=== PATIENT | female | born 1975 | race Caucasian/White ===

== ENCOUNTER 2020-11-28 22:42 | Emergency (ER) | payer BC ==
[~2020-11-28] VITALS: Ht 162.6 cm; Wt 68.2 kg
--- NOTE | 2020-11-28 23:12 | RAD ---
EXAMINATION: Chest radiograph. VIEWS: Single view COMPARISON: None INDICATION:45 years, Unknown, cough and shortness of breath. FINDINGS: Normal cardiomediastinal silhouette. No focal consolidation. No pleural effusion or pneumothorax. No acute osseous process. IMPRESSION: No acute cardiopulmonary process. Electronically signed by: Myriam Humphreys MD (11/28/2020 11:10 PM) [facility]
--- NOTE | 2020-11-28 23:17 | PHYS DOC ---
General Adult EDM: Chief Complaint: ANXIETY/PANIC ATTACK HPI: HPI: 45-year-old female presents with emotional upset and a cough. The patient called EMS because she was feeling very stressed and anxious. She had a romantic partner around it was making her anxiety worse and would not leave her alone. The patient has been drinking alcohol tonight so she did not want to drive. EMS seem like a good solution. The patient does have a cough and has been feeling lightly short of breath for the last few days. She would like to make sure she does not have pneumonia. She denies fever or chills. Review of Systems: Review of Systems: Constitutional: Denies fever or chills Eyes: Denies change in visual acuity HENT: Denies nasal congestion or sore throat Respiratory: Denies cough or shortness of breath Cardiovascular: Denies chest pain or edema GI: Denies abdominal pain, nausea, vomiting, bloody stools or diarrhea : Denies dysuria Musculoskeletal: Denies back pain or joint pain Integument: Denies rash Neurologic: Denies headache, focal weakness or sensory changes Endocrine: Denies polyuria or polydipsia Lymphatic: Denies swollen glands Psychiatric: Denies depression or anxiety Allergies: Allergies: Allergies Coded Allergies Type Severity Reaction Last Updated Verified bupropion Allergy Unknown 11/28/20 Yes Physical Exam: PE: Constitutional: Well developed, well nourished, no acute distress, non-toxic appearance. [] HENT: Normocephalic, atraumatic, bilateral external ears normal, oropharynx moist, no oral exudates, nose normal. [] Eyes: PERRLA, EOMI, conjunctiva normal, no discharge. [] Neck: Normal range of motion, no tenderness, supple, no stridor. [] Cardiovascular:Heart rate regular rhythm, no murmur [] Lungs & Thorax: Bilateral breath sounds clear to auscultation [] Abdomen: Bowel sounds normal, soft, no tenderness, no masses, no pulsatile masses. [] Skin: Warm, dry, no erythema, no rash. [] Back: No tenderness, no CVA tenderness. [] Extremities: No tenderness, no cyanosis, no clubbing, ROM intact, no edema. [] Neurologic: Alert and oriented X 3, normal motor function, normal sensory function, no focal deficits noted. [] Psychologic: Affect normal, judgement normal, mood normal. [] EKG: EKG: [] Radiology/Procedures: Radiology/Procedures: [] Impressions: EXAMINATION: Chest radiograph. VIEWS: Single view COMPARISON: None INDICATION:45 years, Unknown, cough and shortness of breath. FINDINGS: Normal cardiomediastinal silhouette. No focal consolidation. No pleural effusion or pneumothorax. No acute osseous process. IMPRESSION: No acute cardiopulmonary process. Electronically signed by: Paulette Humphreys MD (11/28/2020 11:10 PM) [facility] DICTATED AND SIGNED BY: PAULETTE HUMPHREYS MD DATE: 11/28/202308 CC: JJ BAILON DO; PCP,NO ~MTH0 0 Heart Score: C/O Chest Pain: N/A Risk Factors: Risk Factors: DM, Current or recent (<one month) smoker, HTN, HLP, family history of CAD, obesity. Risk Scores: Score 0 - 3: 2.5% MACE over next 6 weeks - Discharge Home Score 4 - 6: 20.3% MACE over next 6 weeks - Admit for Clinical Observation Score 7 - 10: 72.7% MACE over next 6 weeks - Early Invasive Strategies Course & Med Decision Making: Course & Med Decision Making Pertinent Labs and Imaging studies reviewed. (See chart for details) Patient's chest x-ray is negative for acute findings. I believe she is very emotional more than anything. She just wants to "go home to a safe place". She believes that her daughter will be able to come and get her. She denies assault or physical abuse. She is stable for discharge at this time. [] Donon Disclaimer: Abbie Disclaimer: This electronic medical record was generated, in whole or in part, using a voice recognition dictation system. Departure Departure: Impression: Primary Impression: Anxiety Additional Impression: Cough Disposition: 01 HOME / SELF CARE / HOMELESS Condition: STABLE Referrals: PCP,NO (PCP) Patient Instructions: Anxiety and Panic Attacks, [id number] JJ BAILON DO Nov 28, 2020 23:17
[2020-11-28 23:55] VITALS: BP 120/84
== END 2020-11-29 00:01 | disposition home or self-care (01) ==
LOC: ER 22:42 → EDSEX 22:42 → ER 11-29 00:01
DX: F41.9 Anxiety disorder, unspecified (principal); Z88.8 Allergy status to other drugs, medicaments and biological substances
CPT/HCPCS: 71045; 99283

== ENCOUNTER 2020-12-02 18:08 | Emergency (ER) | payer BC ==
[~2020-12-02] VITALS: Ht 160 cm; Wt 68.3 kg
[2020-12-02 18:45] VITALS: BP 128/73
[2020-12-02] MEDS ORDERED: CYCLOBENZAPRINE 10 MG TABLET. PO ONE (19:15)
[2020-12-02] MEDS ORDERED: IPRATRPIUM/ALBUTEROL 0.5/2.5MG 3 ML NEBU. NEB ONE (19:15)
[2020-12-02] MEDS ORDERED: methylPREDNISolone SOD SUCC PF 125 MG/2 ML VIAL. IV ONE (19:15)
[2020-12-02] MEDS ORDERED: IBUPROFEN 600 MG TABLET. PO ONE (19:15)
[2020-12-02] MEDS ORDERED: CYCLOBENZAPRINE 10 MG TABLET. ONE (19:26)
[2020-12-02] MEDS ORDERED: methylPREDNISolone SOD SUCC PF 125 MG/2 ML VIAL. ONE (19:26)
--- NOTE | 2020-12-02 19:31 | PHYS DOC ---
Past History Additional Past Medical Histor: sleep apnea Past Medical History History of likely asthma, active smoker, Past Surgical History: Tubal ligation, Other Additional Past Surgical Histo: lumpectomy- L breast Smoking: Cigarettes, Less than 1pk/day, Greater than 1 pack/day Alcohol Use: Occasionally General Adult EDM: Chief Complaint: Cough, wheezing, HPI: HPI: 45-year-old female smoker with history of asthma/COPD possibly presented to the emergency department complaining of about 2 weeks of cough, wheezing, shortness of breath, she says that she has been to the ER before for this and to her primary care doctor, was given "some steroids" but is still complaining of some stabbing pain on both upper chest almazan and flanks with coughing, cough is nonproductive, associated with wheezing, no chest pain, symptoms not exertional, no leg swelling. No known history of cardiac disease or history of thromboembolism. She denies fevers or chills, no hemoptysis, no night sweats or weight loss. No loss of taste or smell, she is not vaccinated to COVID-19, no recent travel, Review of Systems: Review of Systems: General: no fevers , no chills, no general weakness Eyes: no blurred vision, no diplopia Skin: no rashes Neck: no swelling, no neck stiffness, no neck pain Heme: no bleeding, no lymph node enlargement Ear/Nose/Throat: No sore throat, no runny nose, no hearing loss, no difficulty swallowing Cardiovascular: no Chest pain, no palpitations, positive for pleuritic pain Respiratory: Positive for shortness of breath, cough, no hemoptysis, positive for wheezing Gastrointestinal: No abdominal pain, no nausea, no vomiting, no diarrhea, no blood in stool Genitourinary: no dysuria, no hematuria Musculoskeletal: no back pain, no leg pain, no arm pain, no arthralgia Neurologic: no headaches, no dizziness, no focal numbness/tingling, no focal weakness Psych: no depression, no anxiety, no SI/HI *All review of systems are negative other than what is noted above Current Medications: Current Meds: Current Medications Medications (Trade) Dose Ordered Sig/Warner Start Time Stop Time Status Last Admin Dose Admin Albuterol/ Ipratropium (Duoneb) 3 ml 1X ONCE 12/02/20 19:15 12/02/20 19:27 DC Cyclobenzaprine HCl (Flexeril) 10 mg STK-MED ONCE 12/02/20 19:26 12/02/20 19:27 DC Ibuprofen (Motrin) 600 mg 1X ONCE 12/02/20 19:15 12/02/20 19:27 DC Methylprednisolone Sodium Succinate (SOLU-Medrol 125MG VIAL) 125 mg STK-MED ONCE 12/02/20 19:26 12/02/20 19:27 DC Allergies: Allergies: Allergies Coded Allergies Type Severity Reaction Last Updated Verified bupropion Allergy Intermediate 11/28/20 Yes Physical Exam: PE: Gen-well appearing, no acute distress Head: Normocephalic/Atraumatic ENT: atraumatic, PERRLA, EOMI, oropharynx clear Neck: supple, full ROM/strength, no JVD, no nuchal rigidity Lungs: no distress, speaks in full sentences, there is expiratory wheezing bilaterally CV: There is precordial tenderness bilaterally, reg rate, rhythm, no murmus/rubs/gallops, peripheral pulses equal in all extremities Abdomen: soft/nontender, no guarding/rebound tenderness, no rigidity, non distended, normoactive bowel sounds Musculoskeletal: full ROM/strength in all extremities, atraumatic, no swelling Back: full range of motion/strength Skin: intact, no rashes Lymph: no gross CAIN Neuro: alert and oriented x 4, CN 2-12 grossly intact, Motor strength is 5/5 in all extremities, no focal sensory deficits, no focal ataxia, ambulatory with steady gait Psych: normal mood/affect Current Patient Data: Vital Signs: Vital Signs Date Time Temp Pulse Resp B/P (MAP) Pulse Ox O2 Delivery O2 Flow Rate FiO2 12/02/20 18:45 98.1 104 24 128/73 91 Room Air EKG: EKG: [] Twelve-lead EKG was performed at 7:31 PM: Normal sinus rhythm, rate is ninety-nine, nonischemic appearing EKG normal axis and intervals of the computer does come out about "prolonged QT", using the QTC four a heart rate of ninety- nine it is slightly prolonged at 4 to 78 ms Radiology/Procedures: Radiology/Procedures: [] Heart Score: C/O Chest Pain: Yes HEART Score for Chest Pain: HEART Score for Chest Pain Response (Comments) Value History Slighlty/Non-Suspicious 0 ECG Normal 0 Age >45 - < 65 1 Risk Factors 1 or 2 Risk Factors 1 Troponin < Normal Limit 0 Total 2 Risk Factors: Risk Factors: DM, Current or recent (<one month) smoker, HTN, HLP, family history of CAD, obesity. Risk Scores: Score 0 - 3: 2.5% MACE over next 6 weeks - Discharge Home Score 4 - 6: 20.3% MACE over next 6 weeks - Admit for Clinical Observation Score 7 - 10: 72.7% MACE over next 6 weeks - Early Invasive Strategies Course & Med Decision Making: Course & Med Decision Making Pertinent Labs and Imaging studies reviewed. (See chart for details) [] 45-year-old female without any known history of cardiac disease presents to the emergency department complaint of cough, wheezing, and also atypical chest pain that I believe is likely from intercostal muscle strain with coughing, pertinent differential diagnosis in this patient includes but is not limited to, pneumonia, bronchitis, unlikely ACS, her heart score is a 2 which is low risk for major adverse cardiac events, unlikely PE, PERC negative and low risk per Wells criteria, likely dissection, pneumothorax, unlikely any serious intracranial or intra-abdominal infection, plan at this time is to check chest x-ray, labs including troponin, D-dimer level to rule out a PE and is otherwise low risk patient, the patient is wheezing, unfortunately denies ability to a rapid Covid test but will give her some breathing treatments and a dose of steroids, then reevaluate exam in the midst of work-up and determine the best course of action is a data becomes available Updated 8:38 PM: Her work-up here is negative, she clinically improved, lungs are clear, x-ray negative, dimer negative, the patient became irate and was verbally abusive to staff members, refused to speak with me, walking around the ER and cursing at other patients, I believe she is medically stable for discharge, mentally competent, clinically sober not a threat to harming herself or others although irate and I believe she can follow-up as an outpatient Patient was seen in the ED for cough, wheezing and atypical chest pain that improved in the emergency department, there is no apparent evidence of any emergency medical pathology at this time, patient was advised follow-up with their primary care provider /physician in the next 24-48 hours and to return to the ED before then if any new or worsening / concerning symptoms had developed. All questions and concerns were addressed at time of disposition Abbie Disclaimer: Abbie Disclaimer: This electronic medical record was generated, in whole or in part, using a voice recognition dictation system. Departure Departure: Impression: Primary Impression: Wheezing Disposition: HOME / SELF CARE / HOMELESS Condition: IMPROVED Referrals: NEENA GRAYSON (PCP) 2 days Patient Instructions: Chest Pain (Nonspecific), Cough, Adult Additional Instructions: The good news that your tests here were okay, nothing dangerous, I recommend that you take the steroid pack, the breathing treatments and muscle relaxants, will need to follow-up with your primary care provider in the next 48 hours, return to the nearest emergency room before then if any new or worsening/concerning symptoms develop Scripts Cyclobenzaprine Hcl (CYCLOBENZAPRINE HCL) 10 Mg Tablet 1 TAB PO TID PRN for PAIN, #15 TAB Prov: WHITLEY BUCHANAN MD 12/02/20 Naproxen Sodium (ANAPROX DS) 550 Mg Tablet 1 TAB PO BID PRN for PAIN for 30 Days, #20 TAB 0 Refills Prov: WHITLEY BUCHANAN MD 12/02/20 Albuterol Sulfate (VENTOLIN HFA INHALER) 18 Gm Hfa.aer.ad 1 PUFF IH PRN Q4HRS PRN for FOR ASTHMA for 5 Days, EACH 0 Refills Prov: WHITLEY BUCHANAN MD 12/02/20 WHITLEY BUCHANAN MD Dec 02, 2020 19:31
[2020-12-02 19:53] LABS: BASO % 0 % (0-3); EOS % 0 % (0-3); HEMATOCRIT 35.3 % (36.0-47.0); LYMPH # 1.8 x10^3/uL (1.0-4.8); LYMPH % 17 % (24-48); MEAN CORPUSCULAR HEMOGLOBIN 31 pg (25-35); MEAN CORPUSCULAR HGB CONC 34 g/dL (31-37); MEAN CORPUSCULAR VOLUME 90 fL (79-100); MONO # 0.7 x10^3/uL (0.0-1.1); MONO % 7 % (0-9); NEUT # 8.1 x10^3uL (1.8-7.7); NEUT % 76 % (31-73); PLATELET COUNT 242 x10^3/uL (140-400); RED BLOOD COUNT 3.93 x10^6/uL (3.50-5.40); RED CELL DISTRIBUTION WIDTH 18.7 % (11.5-14.5); WHITE BLOOD COUNT 10.6 x10^3/uL (4.0-11.0)
--- NOTE | 2020-12-02 20:09 | RAD ---
XR CHEST 1V History: Reason: cough ,wheezing / Spl. Instructions: / History: Comparison: November 28, 2020 Findings: No consolidation or pleural effusion. Normal heart size. No pneumothorax. Nipple shadow projecting ov er the left lung base. Impression: 1. No acute cardiopulmonary process. Electronically signed by: Ervin García DO (12/02/2020 8:07 PM) [facility] [place]
[2020-12-02 20:20] LABS: CALCIUM 7.9 mg/dL (8.5-10.1); CREATININE 0.9 mg/dL (0.6-1.0); GFR 67.4; POTASSIUM 3.8 mmol/L (3.5-5.1)
[2020-12-02 20:31] LABS: ALBUMIN 3.3 g/dL (3.4-5.0); ALBUMIN/GLOBULIN RATIO 1.1 (1.0-1.7); TOTAL BILIRUBIN 0.3 mg/dL (0.2-1.0); TOTAL PROTEIN 6.3 g/dL (6.4-8.2)
[2020-12-02] MEDS ORDERED: CYCL-331 PO (20:43)
[2020-12-02] MEDS ORDERED: ALBU2.5V8 IH (20:43)
[2020-12-02] MEDS ORDERED: NAPR-682 PO (20:43)
--- NOTE | 2020-12-03 01:17 | EKG ---
[address] [address] Test Date: 2020-12-02 Test Time: 19:31:07 Pat Name: JAY DAVIS Department: Room: Gender: F [employer] [place]: CATHLEEN : 1975 Requested By: WHITLEY BUCHANAN Order Number: [id number] Reading MD: Measurements Intervals [place] Rate: 99 P: 53 NE: 140 QRS: 28 QRSD: 92 T: 77 QT: 368 QTc: 478 Interpretive Statements SINUS RHYTHM PROLONGED QT NO SPECIFIC ECG ABNORMALITIES RI6.02 Compared to ECG 12/02/2020 19:29:54 Prolonged QT interval now present Sinus tachycardia no longer present
== END 2020-12-02 20:50 | disposition home or self-care (01) ==
LOC: ER 18:08
DX: R06.2 Wheezing (principal); R07.89 Other chest pain; Z87.891 Personal history of nicotine dependence; Z88.8 Allergy status to other drugs, medicaments and biological substances
CPT/HCPCS: 36415; 71045; 80053; 83690; 83880; 84484; 85025; 85379; 93005; 94640; 96374; 99285; J2930

== ENCOUNTER → 2020-12-08 | Outpatient (CLI) | payer BC ==
[2020-12-02 18:45] VITALS: BP 128/73
[~2020-12-08] MED LIST: ALBU2.5V8 IH; CYCL-331 PO; NAPR-682 PO
--- NOTE | 2020-12-08 13:06 | RAD ---
EXAM: ABDOMINAL ULTRASOUND. HISTORY: Abdominal pain and distention. COMPARISON: None. FINDINGS: Sonographic evaluation of the abdomen was performed. Increased hepatic parenchymal echogenicity is consistent with steatosis. There are no focal lesions. The spleen measures 8.7 cm. The gallbladder is unremarkable without evidence of stones, wall thickening or pericholecystic fluid. The vine fruit farming supervisor notes tenderness scanning over the gallbladder. The common duct measures 5 mm. The v isualized portions of the head of the pancreas reveal no abnormality. The right kidney measures 10.3 cm. Cortical thickness and echogenicity are preserved. There is no hyd ronephrosis. The left kidney measures 11.2 cm. Cortical thickness and echogenicity are preserved. The re is no hydronephrosis. The visualized portions of the abdominal aorta and inferior vena cava are grossly patent and normal i n caliber. IMPRESSION: 1. The vine fruit farming supervisor notes tenderness to scanning over the gallbladder, but there is no sonographic douglas dence of acute cholecystitis. Ongoing follow-up is recommended. 2. Diffuse hepatic steatosis. Electronically signed by: Abbie Valverde MD (12/08/2020 1:03 PM) [id number]
== END ==
LOC: US 10:51
PROVIDERS: ATTEND Family Medicine
DX: K76.0 Fatty (change of) liver, not elsewhere classified (principal)
CPT/HCPCS: 76700

== ENCOUNTER 2021-03-18 15:03 | Emergency (ER) | payer BC ==
[~2021-03-18 15:03] MED LIST changes: -CYCL-331 PO; +CYCL10TA19 PO
--- NOTE | 2021-03-18 15:20 | PHYS DOC ---
Past History Additional Past Medical Histor: sleep apnea Past Surgical History: Tubal ligation, Other Additional Past Surgical Histo: lumpectomy- L breast Smoking: Cigarettes, Less than 1pk/day, Greater than 1 pack/day Alcohol Use: Occasionally Adult General Chief Complaint Chief Complaint: ABDOMINAL PAIN HPI HPI Patient is a 45-year-old female presenting for Covid sequelae. She is an unvaccinated individual who smokes but has no other significant medical issues presenting for Covid symptoms. She reports she was diagnosed 9 days ago and has been symptomatic for past 11 days. She reports she has had ongoing postnasal drip and sequelae of this such as dry nonproductive cough that is worse at night and interfering with her ability to lie flat and sleep. She also reports using a CPAP as needed for sleep apnea but she has not been able to use this due to ongoing postnasal drip symptoms. She reports she has had occasional diarrhea and nausea since this occurred with no recent fever or other concerning symptoms. She tried to follow-up with her primary care physician after her recent Covid positive test but was ultimately deferred to our facility for evaluation. She is concerned due to ongoing symptoms related to her recent illness Review of Systems Review of Systems Fourteen body systems of review of systems have been reviewed. See HPI for pertinent positives and negative responses, other moore all other systems are negative, non-pertinent or non-contributory Allergies Allergies Allergies Coded Allergies Type Severity Reaction Last Updated Verified bupropion Allergy Intermediate 11/28/20 Yes Physical Exam Physical Exam General: Appears well, non toxic, and comfortable Skin: Warm, dry. Normal for ethnicity. HEENT: Atraumatic. PERRLA. Postnasal drip nasal congestion present. Nasal turbinates boggy b/l. Moist mucous membranes. Uvula midline. Maintaining secretions. No phonation changes. Neck: Trachea midline. Normal ROM. No stridor. Respiratory: Normal WOB. CTAB w/o w/r/r. No tachypnea. Cardiovascular: Regular rate and rhythm. Normal peripheral perfusion. Abdomen: Soft. Non tender. No distension. Back: Normal ROM. Musculoskeletal: No swelling or deformity. Neuro: Alert and oriented x 4. MAEE. Lymph: No cervical LAD. Psych: Normal affect and mood. EKG EKG [] Radiology/Procedures Radiology/Procedures [] Heart Score C/O Chest Pain: No Risk Factors: Risk Factors: DM, Current or recent (<one month) smoker, HTN, HLP, family history of CAD, obesity. Risk Scores: Risk Factors: DM, Current or recent (<one month) smoker, HTN, HLP, family history of CAD, obesity. Course & Med Decision Making Course & Med Decision Making ABCs unremarkable HPI and comprehensive physical exam nonconcerning for any emergent or surgical issues No indication for further diagnostic ER workup, intervention, or hospitalization at this time Discussed need for continued supportive care practices and close outpatient follow-up as indicated Recommended supportive care practices such as incorporating daily antihistamine and Flonase into her daily medication regimen and avoiding any tobacco use. Strict return precautions were discussed and understood by patient, all questions and concerns addressed prior to ER departure Dragon Disclaimer Dragon Disclaimer This electronic medical record was generated, in whole or in part, using a voice recognition dictation system. Departure Departure: Impression: Primary Impression: COVID-19 Disposition: HOME / SELF CARE / HOMELESS Condition: STABLE Referrals: NEENA GRAYSON (PCP) Additional Instructions: As discussed prior to ER departure your vitals and comprehensive physical examination were grossly unremarkable for any emergent or surgical issues. You are suffering from continued Covid-like symptoms. Most of your symptoms resolved from uncontrolled rhinorrhea and postnasal drip. Please use prescribed Flonase and antihistamine such as Zyrtec or Claritin as needed to improve your continued rhinorrhea and postnasal drip. I have also prescribed you Zofran whi ch should be used as needed for nausea. Please contact your primary care physician to review need for close outpatient follow-up status post recent Covid infection. If any concerning signs or symptoms present prior to outpatient follow-up please do not hesitate to come back for repeat evaluation. Is a pleasure to take care of you and I wish you the best going forward Scripts Fluticasone Propionate (Flonase Allergy Relief) 9.9 Ml [place].susp 2 SPRAYS NS DAILY for rhinorrhea, #1 ML Prov: MAKENZIE SEO DO 03/18/21 Ondansetron (ONDANSETRON ODT) 4 Mg Tab.rapdis 1 TAB PO PRN Q6-8HRS for nausea, #16 TAB Prov: MAKENZIE SEO DO 03/18/21 MAKENZIE SEO DO Mar 18, 2021 15:19
[2021-03-18] MEDS ORDERED: ONDA4TAB12 PO (15:47)
[2021-03-18] MEDS ORDERED: FLUT9.9S NS (15:53)
== END 2021-03-18 16:02 | disposition home or self-care (01) ==
LOC: ER 15:03
DX: U07.1 COVID-19 (principal); F17.210 Nicotine dependence, cigarettes, uncomplicated; Z88.8 Allergy status to other drugs, medicaments and biological substances
CPT/HCPCS: 99283